=== PATIENT | male | born 1955 | race Caucasian/White ===

== ENCOUNTER 2021-08-25 08:46 | Day surgery (SDC) | payer MEDICARE, OTHER, SELFPAY ==
[2021-08-25] VITALS (7 sets, daily range): BP systolic 118–141; BP diastolic 72–87; PULSE 54–88; RESP 12–16; TEMP 36.2–36.7; O2SAT 96–98; BMI 27.0
[2021-08-25 09:43] LABS: COVID19 -Nasal RAPID Negative (Negative)
[2021-08-25] MEDS: LACTATED RINGERS 1,000 ML 200 ML IV (10:08)
--- NOTE | 2021-08-25 10:13 | PM.HP.1 ---
History of Present Illness History of Present Illness Date Patient Seen: 08/25/21 Time Patient Seen: 10:13 Chief complaint: SDC Narrative: The patient presents for colorectal sreening. He has had multiple previous colonoscopies most recently 4 years ago. He reports having a pre cancerous polyp removed and tattooed which was being followed with 3 year intervals at an outside institution. No personal or family history of colon cancer. On further history denies any recent gastrointestinal symptoms. No nausea, vomiting, abdominal pain, loss of appetite, unexplained weight loss, change in bowel habits, diarrhea, constipation, melena, hematochezia, or bright red blood per rectum. Patient History Medical History Diabetes mellitus HTN (hypertension) Hypercholesteremia Psoriasis Skin cancer of arm Family & Social History Social History: household members spouse Tobacco & Substance use: Smoking Status Never smoker alcohol intake current alcohol intake frequency a few times a month Substance Use Type does not use Meds Home Medications and Allergies Home Medications Medication Instructions Recorded Confirmed Type amlodipine 5 mg tablet 5 mg PO DAILY 08/25/21 08/25/21 History glipizide 5 mg tablet, extended 5 mg PO DAILY 08/25/21 08/25/21 History release 24 hr losartan 50 mg tablet 50 mg PO DAILY 08/25/21 08/25/21 History lovastatin 40 mg tablet 40 mg PO DAILY 08/25/21 08/25/21 History metformin 500 mg tablet 500 mg PO QID 08/25/21 08/25/21 History Allergies Allergy/AdvReac Type Severity Reaction Status Date / Time Sulfa (Sulfonamide Allergy Severe Swelling Verified 08/25/21 10:01 Antibiotics) of Lip/Tongue/Throat Exam Vital Signs (past 8 hours): - 08/25/21 10:08 Temperature 97.8 F Pulse Rate 88 Respiratory Rate 16 Blood Pressure 141/87 H Pulse Oximetry 97 Oxygen Delivery Method Room Air Narrative Exam Narrative: Constitutional-he is oriented to person, place and time. No apparent distress Cardiovascular- regular rate, no peripheral edema Pulmonary-unlabored respiratory effort, no audible wheezing Objective Labs Labs: Laboratory Results - last 24 hr 08/25/21 09:05 SARS-CoV-2 (PCR) Negative Assessment & Plan Assessment and plan (1) Personal history of colonic polyps: Status: Acute Assessment & Plan narrative: The patient requires colorectal screening and colonoscopy is recommended. Technical details were discussed. Risks, benefits, alternatives explained. Risks including but not limited to myocardial infarction, aspiration, bleeding, pain, missed lesion, incomplete examination, need for further radiographic studies, colonic perforation, and need for major abdominal surgery were discussed. All questions were answered to their satisfaction, and they are in agreement with this plan. Time Spent With Patient Critical Care time: I spent a total of [] minutes of critical care time on this patient's care today; this time is exclusive of procedural time.
[2021-08-25] MEDS: MIDAZOLAM 5 MG/5 ML VIAL IV (10:24)
[2021-08-25] MEDS: fentaNYL 250 MCG/5 ML INJ IV (10:30)
--- NOTE | 2021-08-25 10:43 | PM.OP.COLON ---
Operative Date/Time/Diagnoses Date of procedure: 08/25/21 Time of procedure: 10:43 Pre-op diagnosis: Personal history of colonic polyps Post-op diagnosis: same Procedure & Clinicians Study performed: Colonoscopy Same procedure as scheduled: Yes Indications: Personal history of colon polyps Surgeon: Preston Carr Procedure Notes Procedure in detail: Medications: Conscious sedation using 5mg IV midazolam and 150mcg IV of fentanyl The history and physical was performed/updated and the patient is ASA class is 2. The procedure was discussed in detail with the patient. Potential risks complications including infection, bleeding, missed diagnosis, perforation, need for surgery, and were explained. Their questions were answered and informed consent was obtained. Patient was brought to the procedure room and placed standard monitoring equipment. The patient's vital signs were monitored continuously throughout the entire procedure. Prior to starting time-out was performed. The patient was placed in the left lateral recumbent position. Procedural sedation was administered. Examination began with a thorough inspection of the perianal area there was no evidence of fissures, fistulae, external hemorrhoids or cutaneous malignancy. The colonoscopy scope was then placed into the anal canal and was advanced to the cecum, which was identified by the ileocecal valve, the appendiceal orifice and the confluence of the taenia. The scope was then slowly withdrawn examining colon thoroughly in all directions, irrigating it of any residual stool. FINDINGS 1. No masses polyps or inflammation 2. Tattoo within the distal rectum observed no evidence of further polyp development here The patient tolerated the procedure well. They will be discharged once criteria are met. The prep was of good/excellent quality. The withdrawl time was 8 minutes. The sedation time was 21 minutes.. Specimen(s): none sent Complications: none Impression: Normal colonoscopy Post-procedure Recommendations: Colonoscopy in 5 years Disposition: same day surgery
== END 2021-08-25 11:28 | disposition home or self-care (01) ==
PROVIDERS: PCP Internal Medicine; Referring Provider Surgery; Visit Provider Surgery
PROC: 0DJD8ZZ Inspection of Lower Intestinal Tract, Via Natural or Artificial Opening Endoscopic (ICD-10-PCS; CPT 45378; principal; 2021-08-25 10:00)
DX: Z12.11 Encounter for screening for malignant neoplasm of colon (principal); Z86.010 Personal history of colon polyps; E11.9 Type 2 diabetes mellitus without complications; I10 Essential (primary) hypertension; Z79.84 Long term (current) use of oral hypoglycemic drugs; Z20.822 Contact with and (suspected) exposure to COVID-19
CPT/HCPCS: G0105; 87635; 99152; J2250; J3010